=== PATIENT | female | born 1945 | race Caucasian/White ===

== ENCOUNTER 2021-03-27 07:58 | Outpatient (CLI) | payer MEDICARE, BC | END 2021-03-27 07:59 | disposition home or self-care (01) | LOC: CSHMAMMO 07:58 | PROVIDERS: ATTEND Obstetrics & Gynecology | DX: Z12.31 Encounter for screening mammogram for malignant neoplasm of breast (principal) | CPT/HCPCS: 77063; 77067 ==

== ENCOUNTER 2021-09-14 12:14 | Observation (INO) | payer MEDICARE, BC ==
[~2021-09-14 12:14] MED LIST: Iopamidol 370 76% 100 ML VIAL ONE
[2021-09-14 12:44] LABS: #Basophils 0.1 10x3/uL (0.0-0.2); #Eosinphils 0.2 10x3/uL (0.0-0.5); #Monocytes 0.7 10x3/uL (0.0-1.1); %Basophils 1.1 % (0.0-2.0); %Eosinophils 2.4 % (0.0-6.0); %Lymphocytes 18.1 % (18.0-47.0); Hemoglobin 13.9 g/dL (12.0-15.5); Mean Corpuscular HGB CONC 34.5 g/dL (32.0-36.0); Mean Corpuscular Volume 92.6 fl (81.6-98.3); Mean Platelet Volume 10.6 fl (7.4-10.4); Platelet Count 246 10x3/uL (150-450); RBC Distribution Width 13.3 % (11.5-14.5); Red Blood Cell (RBC) Count 4.35 10x6/uL (3.90-5.03); White Blood Cell (WBC) Count 7.2 10x3/uL (3.5-10.5)
[2021-09-14 12:53] LABS: ALT (SGPT) 22 U/L (8-55); AST (SGOT) 38 U/L (5-34); Albumin 3.5 g/dL (3.4-4.8); Alkaline Phosphatase 145 U/L (40-110); Anion Gap 11 mmol/L (10-20); BUN (Urea Nitrogen) 10 mg/dL (9.8-20.1); Bilirubin, Total 0.4 mg/dL (0.2-1.2); Calc. Creatinine Clearance 0 mL/min (70-130); Carbon Dioxide 29 mmol/L (23-31); Chloride 101 mmol/L (98-107); Glucose 138 mg/dL (83-110); Lipase 44 U/L (8-78); Potassium 3.9 mmol/L (3.5-5.1); Protein, Total 5.5 g/dL (5.8-8.1); Sodium 137 mmol/L (136-145)
[2021-09-14] MEDS ORDERED: Nitroglycerin 0.4 MG TAB 1 EACH ONE (12:59)
[2021-09-14] MEDS ORDERED: Morphine 4 MG/ML VIAL ONE ×2 (13:18→13:22)
[2021-09-14] MEDS ORDERED: Ondansetron PF 4 MG/2 ML Vial ONE ×2 (13:19→13:23)
[2021-09-14] MEDS ORDERED: Acetaminophen 325 MG TAB PO PRN (16:09)
[2021-09-14] MEDS ORDERED: Ondansetron ODT 4 MG TAB PO PRN (16:09)
[2021-09-14] MEDS ORDERED: Nitroglycerin 0.4 MG TAB (25 Tab Bottle) SL PRN (16:14)
[2021-09-14 17:13] VITALS: BMI 34.3
[2021-09-14] MEDS ORDERED: Morphine 2 MG/ML VIAL SLOW IVP PRN (17:22)
[2021-09-14 17:52] LABS: Bilirubin Neg (Negative); Blood, Urine Negative (Negative); Clarity Clear (Clear); Glucose, Urine (Dipstick) Normal (Negative); Ketone, Urine Negative (Negative); Leukocyte Negative (Negative); Nitrite Negative (Negative); Protein, Urine (Dipstick) Negative (Neg-Trace); Urobilinogen Normal mg/dL (Less than 2)
[2021-09-14 17:59] LABS: RBC/HPF None Seen HPF (0-3)
[2021-09-14 18:01] LABS: Urine Culture Reflex No No
[2021-09-14 18:55] LABS: Troponin I Less than 0.010 ng/mL (< 0.028)
[2021-09-14] MEDS: Morphine 4 MG/ML VIAL SLOW IVP PRN (21:01)
[2021-09-15] MEDS: Morphine 4 MG/ML VIAL SLOW IVP PRN (01:02)
[2021-09-15] MEDS ORDERED: Aspirin 81 mg Enteric Coated Tablet PO SCH (09:00)
[2021-09-15 12:47] VITALS: TEMP 97.1
[2021-09-15 12:50] LABS: Hemoglobin A1c 5.7 % (4.0-6.0)
[2021-09-15 16:56] VITALS: BP 145/68
[2021-09-15] MEDS ORDERED: Atorvastatin Calcium 40 MG TAB PO SCH (21:00)
== END 2021-09-15 16:56 | disposition home or self-care (01) ==
LOC: CSHERS 12:14 → CSHTELE 16:29 → INTOOBSV 16:29
PROVIDERS: ADMIT Internal Medicine; ATTEND Internal Medicine
DX: R07.9 Chest pain, unspecified (principal); R10.13 Epigastric pain; R19.7 Diarrhea, unspecified; R35.1 Nocturia; M79.672 Pain in left foot; E78.5 Hyperlipidemia, unspecified; Z20.822 Contact with and (suspected) exposure to COVID-19; Z79.82 Long term (current) use of aspirin; Z88.1 Allergy status to other antibiotic agents
CPT/HCPCS: 71045; 71275; 80053; 81001; 83036; 83690; 83880; 84484 ×2; 85025; 93005; 94760 ×2; 96374; 96375; 96376; 99285; G0378 ×3; U0003; U0005; 36415; 93010; J2270; J2405; Q9967

== ENCOUNTER 2021-09-23 13:27 | Outpatient (CLI) | payer MEDICARE, BC | END 2021-09-23 13:28 | disposition home or self-care (01) | LOC: CSHMRI 13:27 | PROVIDERS: ATTEND Podiatrist | DX: M79.672 Pain in left foot (principal); S92.002A Unspecified fracture of left calcaneus, initial encounter for closed fracture ==

== ENCOUNTER 2022-04-19 05:06 | Emergency (ER) | payer OTHER, MEDICARE, BC ==
[2022-04-19] MEDS ORDERED: Lidocaine 1% w/Epinephrine 1:200K 30 ML VIAL ONE (05:30)
[2022-04-19] MEDS ORDERED: Boostrix 0.5 ML (Tdap) VIAL (>/=7 yrs of age) ONE (05:30)
[2022-04-19] MEDS ORDERED: Bacitracin 1 PK ONE (05:30)
== END 2022-04-19 07:10 | disposition home or self-care (01) ==
LOC: CSHERS 05:06
DX: S01.81XA Laceration without foreign body of other part of head, initial encounter (principal); S09.90XA Unspecified injury of head, initial encounter; Z23 Encounter for immunization; E78.00 Pure hypercholesterolemia, unspecified; W01.10XA Fall on same level from slipping, tripping and stumbling with subsequent striking against unspecified object, initial encounter
CPT/HCPCS: 12011; 70450; 70486; 76377; 90471; 90715

== ENCOUNTER 2022-05-14 09:41 | Outpatient (CLI) | payer MEDICARE, BC | END 2022-05-14 09:42 | disposition home or self-care (01) | LOC: CSHMAMMO 09:41 | PROVIDERS: ATTEND Family Medicine | DX: Z12.31 Encounter for screening mammogram for malignant neoplasm of breast (principal); N63.10 Unspecified lump in the right breast, unspecified quadrant; N64.59 Other signs and symptoms in breast | CPT/HCPCS: 77063; 77067 ==

== ENCOUNTER 2023-10-24 05:41 | Emergency (ER) | payer MEDICARE, BC ==
[2023-10-24] MEDS ORDERED: Ketorolac Tromethamine 30 MG (1 mL) VIAL ONE (06:42)
[2023-10-24 07:10] LABS: #Basophils 0.08 10x3/uL (0.0-0.2); #Eosinphils 0.09 10x3/uL (0.0-0.5); #Monocytes 0.65 10x3/uL (0.0-1.1); #Neutrophils 7.55 10x3/uL (1.5-8.4); %Basophils 0.9 % (0.0-2.0); %Lymphocytes 7.6 % (18.0-47.0); %Monocytes 7.2 % (0.0-10.0); %Neutrophils 83.1 % (40.0-75.0); Hematocrit 43.6 % (34.9-44.5); Hemoglobin 15.5 g/dL (12.0-15.5); Mean Corpuscular HGB CONC 35.6 g/dL (32.0-36.0); Mean Corpuscular Hemoglobin 33.3 pg (27.0-33.0); Mean Corpuscular Volume 93.8 fL (81.6-98.3); Mean Platelet Volume 10.8 fL (7.4-10.4); Platelet Count 185 10x3/uL (150-450); RBC Distribution Width 11.6 % (11.5-14.5); Red Blood Cell (RBC) Count 4.65 10x6/uL (3.90-5.03); White Blood Cell (WBC) Count 9.1 10x3/uL (3.5-10.5)
[2023-10-24 07:27] LABS: ALT (SGPT) 13 U/L (8-55); AST (SGOT) 37 U/L (5-34); Alkaline Phosphatase 76 U/L (40-110); Anion Gap 14 mmol/L (10-20); BUN (Urea Nitrogen) 7 mg/dL (9.8-20.1); Bilirubin, Total 0.9 mg/dL (0.2-1.2); Calc. Creatinine Clearance 0 mL/min (70-130); Calcium 9.7 mg/dL (7.8-10.44); Carbon Dioxide 26 mmol/L (23-31); Chloride 104 mmol/L (98-107); Estimated GFR 80; Globulin 2.7 g/dL (2.4-3.5); Glucose 109 mg/dL (83-110); Potassium 4.1 mmol/L (3.5-5.1); Protein, Total 6.7 g/dL (5.8-8.1); Sodium 140 mmol/L (136-145)
[2023-10-24 07:32] LABS: Troponin I Less than 0.010 ng/mL (< 0.028)
[2023-10-24 07:42] LABS: Influenza A by NAA Not Detected (NotDetected); Influenza B by NAA Not Detected (NotDetected); SARS-CoV-2 NAA Rapid Test DETECTED (NotDetected)
== END 2023-10-24 08:45 | disposition home or self-care (01) ==
LOC: CSHERS 05:41
DX: U07.1 COVID-19 (principal); E78.00 Pure hypercholesterolemia, unspecified; Z79.899 Other long term (current) drug therapy
CPT/HCPCS: 0240U; 71045; 80053; 83605; 84484; 85025; 87040; 93005; J1885; 36415; 96374

== ENCOUNTER 2023-11-16 14:01 | Outpatient (CLI) | payer MEDICARE, BC | END 2023-11-16 14:02 | disposition home or self-care (01) | LOC: CSHMRI 14:01 | PROVIDERS: ATTEND Internal Medicine | DX: R41.3 Other amnesia (principal); G31.9 Degenerative disease of nervous system, unspecified; I67.89 Other cerebrovascular disease | CPT/HCPCS: 70551 ==

== ENCOUNTER 2024-04-24 09:25 | Emergency (ER) | payer MEDICARE, BC ==
[2024-04-24 10:38] LABS: #Basophils 0.06 10x3/uL (0.0-0.2); #Eosinophils 0.09 10x3/uL (0.0-0.5); #Monocytes 0.57 10x3/uL (0.0-1.1); #Neutrophils 6.21 10x3/uL (1.5-8.4); %Basophils 0.7 % (0.0-2.0); %Lymphocytes 20.4 % (18.0-47.0); %Monocytes 6.5 % (0.0-10.0); %Neutrophils 71.2 % (40.0-75.0); Hematocrit 42.4 % (34.9-44.5); Hemoglobin 14.3 g/dL (12.0-15.5); Mean Corpuscular HGB CONC 33.7 g/dL (32.0-36.0); Mean Corpuscular Hemoglobin 31.6 pg (27.0-33.0); Mean Corpuscular Volume 93.8 fL (81.6-98.3); Mean Platelet Volume 10.6 fL (7.4-10.4); Platelet Count 204 10x3/uL (150-450); RBC Distribution Width 11.5 % (11.5-14.5); Red Blood Cell (RBC) Count 4.52 10x6/uL (3.90-5.03); White Blood Cell (WBC) Count 8.7 10x3/uL (3.5-10.5)
[2024-04-24 10:59] LABS: ALT (SGPT) 18 U/L (8-55); AST (SGOT) 37 U/L (5-34); Albumin 3.6 g/dL (3.4-4.8); Alkaline Phosphatase 69 U/L (40-110); Anion Gap 12 mmol/L (10-20); BUN (Urea Nitrogen) 8 mg/dL (9.8-20.1); Calc. Creatinine Clearance 0 mL/min (70-130); Calcium 9.3 mg/dL (7.8-10.44); Carbon Dioxide 27 mmol/L (23-31); Chloride 104 mmol/L (98-107); Estimated GFR 83; Globulin 2.5 g/dL (2.4-3.5); Glucose 109 mg/dL (83-110); Lipase 32 U/L (8-78); Magnesium 1.9 mg/dL (1.6-2.6); Potassium 4.4 mmol/L (3.5-5.1); Protein, Total 6.1 g/dL (5.8-8.1); Sodium 139 mmol/L (136-145)
[2024-04-24 12:49] LABS: Bilirubin Neg (Negative); Blood, Urine Negative (Negative); Clarity Clear (Clear); Glucose, Urine (Dipstick) Normal (Negative); Ketone, Urine Negative (Negative); Leukocyte Negative (Negative); Nitrite Negative (Negative); Protein, Urine (Dipstick) Negative (Neg-Trace); Specific Gravity, Urine 1.015 (1.005-1.030); Urobilinogen Normal mg/dL (Less than 2)
[2024-04-24 13:43] LABS: CAUTI Indications for Culture Dysuria,urgency,freq; RBC/HPF 0-3 HPF (0-3); Squamous Epithelial 0-3 HPF (0-3); WBC/HPF 0-3 HPF (0-3)
[2024-04-24 13:44] LABS: Bacteria/HPF Rare-Few HPF (None Seen); Urine Culture Reflex No No
[2024-04-24] MEDS ORDERED: Iopamidol 300 61% 100 ML VIAL FS ONE (14:23)
== END 2024-04-24 14:04 | disposition home or self-care (01) ==
LOC: CSHERS 09:25
DX: R19.7 Diarrhea, unspecified (principal); R53.83 Other fatigue; E78.5 Hyperlipidemia, unspecified; Z79.82 Long term (current) use of aspirin; Z79.899 Other long term (current) drug therapy
CPT/HCPCS: 74177; 80053; 81001; 83690; 83735; 85025; 87428; 96360; Q9967

== ENCOUNTER 2025-01-20 14:51 | Emergency (ER) | payer MEDICARE, BC ==
[2025-01-20 15:46] LABS: #Basophils 0.08 10x3/uL (0.0-0.2); #Eosinophils 0.09 10x3/uL (0.0-0.5); #Monocytes 0.49 10x3/uL (0.0-1.1); #Neutrophils 4.43 10x3/uL (1.5-8.4); %Basophils 1.2 % (0.0-2.0); %Eosinophils 1.4 % (0.0-6.0); %Lymphocytes 22.6 % (18.0-47.0); %Monocytes 7.4 % (0.0-10.0); %Neutrophils 67.2 % (40.0-75.0); Hematocrit 41.1 % (34.9-44.5); Hemoglobin 14.2 g/dL (12.0-15.5); Mean Corpuscular Hemoglobin 32.1 pg (27.0-33.0); Mean Corpuscular Volume 92.8 fL (81.6-98.3); Platelet Count 209 10x3/uL (150-450); Red Blood Cell (RBC) Count 4.43 10x6/uL (3.90-5.03); White Blood Cell (WBC) Count 6.59 10x3/uL (3.5-10.5)
[2025-01-20 16:03] LABS: ALT (SGPT) 12 U/L (Less than 34); AST (SGOT) 30 U/L (11-34); Albumin 3.5 g/dL (3.1-4.5); Alkaline Phosphatase 67 U/L (40-110); Anion Gap 11 mmol/L (10-20); BUN (Urea Nitrogen) 8 mg/dL (9.8-20.1); Bilirubin, Total 0.6 mg/dL (0.3-1.2); Calc. Creatinine Clearance 0 mL/min (70-130); Calcium 8.5 mg/dL (7.8-10.44); Carbon Dioxide 27 mmol/L (23-31); Chloride 107 mmol/L (98-107); Globulin 2.1 g/dL (2.4-3.5); Glucose 109 mg/dL (83-110); Potassium 4.1 mmol/L (3.5-5.1); Sodium 141 mmol/L (136-145)
[2025-01-20 16:05] LABS: Troponin I Less than 0.010 ng/mL (< 0.028)
== END 2025-01-20 17:45 | disposition home or self-care (01) ==
LOC: CSHERS 14:51
DX: I95.1 Orthostatic hypotension (principal); R42 Dizziness and giddiness; R29.700 NIHSS score 0; E78.5 Hyperlipidemia, unspecified; Z79.899 Other long term (current) drug therapy
CPT/HCPCS: 36415; 70450; 80053; 83880; 84484; 85025; 93005